=== PATIENT | female | born 1945 | race Caucasian/White ===

== ENCOUNTER 2016-09-20 19:43 | Emergency (ER) | payer MEDICARE, MEDICAID ==
[~2016-09-20] VITALS: Ht 162.6 cm; Wt 115.0 kg
[~2016-09-20 19:43] MED LIST: AMLO5TAB2 PO; HYDR25TA6 PO; INSU100C5 SQ; LEVO200T5 PO; LEVO88TA4 PO; METROPOLOL PO; OMEP-110 PO; SPIR25TA3 PO; VENIAFAXINE PO; [UNRECOGNIZED DRUG - OTHER] PO
[2016-09-20] MEDS ORDERED: DEXAMETHASONE 4 MG/ML, 1ML IVPush ONE (20:30)
[2016-09-20] MEDS ORDERED: FAMOTIDINE 20 MG/2 ML IVPush ONE (20:30)
[2016-09-20] MEDS ORDERED: DEXAMETHASONE 4 MG/ML, 5ML ONE (20:33)
[2016-09-20] MEDS ORDERED: FAMOTIDINE 20 MG/2 ML ONE ×2 (20:33)
[2016-09-20 22:17] VITALS: BP 142/78
== END 2016-09-20 22:19 | disposition home or self-care (01) ==
LOC: ED 21:14
DX: L40.0 Psoriasis vulgaris (principal); T78.3XXA Angioneurotic edema, initial encounter; F17.200 Nicotine dependence, unspecified, uncomplicated; E03.9 Hypothyroidism, unspecified; I10 Essential (primary) hypertension; Z90.49 Acquired absence of other specified parts of digestive tract
CPT/HCPCS: 96374; 96375; 99284; J1100; S0028

== ENCOUNTER → 2016-11-18 | Outpatient (CLI) | payer MEDICARE, MEDICAID | END | disposition home or self-care (01) | LOC: CVU 08:56 | PROVIDERS: ATTEND Internal Medicine Cardiovascular Disease | DX: I65.23 Occlusion and stenosis of bilateral carotid arteries (principal); I35.0 Nonrheumatic aortic (valve) stenosis; I70.8 Atherosclerosis of other arteries; E11.9 Type 2 diabetes mellitus without complications; I10 Essential (primary) hypertension; E78.5 Hyperlipidemia, unspecified; Z87.891 Personal history of nicotine dependence | CPT/HCPCS: 93880; C8929 ==

== ENCOUNTER 2016-12-01 08:07 | Day surgery (SDC) | payer MEDICARE, MEDICAID ==
[2016-11-30 09:23] LABS: ASPARTATE AMINO TRANSFERASE 36 U/L (15-37); BLOOD UREA NITROGEN 23 mg/dL (7-18)
[~2016-12-01] VITALS: Ht 162.6 cm; Wt 119.0 kg
[~2016-12-01 08:07] MED LIST changes: +CYCL-259 PO; +DIAZ10TA4 PO; +INSU100I28 SQ-INSULIN; +INSU200I SQ; +LISI-167 PO; +METO-99 PO; +SENN1TAB PO; +VENL50TA2 PO; +[UNRECOGNIZED DRUG - CODE] TP
[2016-12-01] MEDS ORDERED: LACTATED RINGERS 1,000 ML IV SCH (08:54)
[2016-12-01 08:59] VITALS: BP 153/73
[2016-12-01] MEDS ORDERED: OXYcodone 5 MG/5 ML ORAL.SOL UDC PO PRN (11:00)
[2016-12-01] MEDS ORDERED: HYDROmorphone 1 MG/ML, 1ML IV PRN (11:00)
[2016-12-01] MEDS ORDERED: MIDAZOLAM 1 MG/ML, 2ML IV PRN (11:00)
[2016-12-01] MEDS ORDERED: LABETALOL 5MG/ML, 20ML IV PRN (11:00)
[2016-12-01] MEDS ORDERED: PROMETHAZINE 25 MG/ML, 1ML IV PRN (11:00)
[2016-12-01] MEDS ORDERED: ONDANSETRON 2MG/ML, 2ML IVPush PRN (11:00)
[2016-12-01] MEDS: hydrALAzine 20 MG/ML, 1ML IV PRN ×2 (11:04→11:24)
[2016-12-01] MEDS ORDERED: hydrALAzine 20 MG/ML, 1ML ONE (11:05)
[2016-12-01] MEDS ORDERED: FENTANYL PF 100 MCG/2ML ONE (11:05)
[2016-12-01] MEDS: FENTANYL PF 100 MCG/2ML IV PRN ×2 (11:07→11:18)
[2016-12-01] MEDS ORDERED: PROPOFOL 10 MG/ML, 20ML ONE (15:56)
== END 2016-12-01 13:00 ==
LOC: OUT 08:07
PROVIDERS: ATTEND Internal Medicine Gastroenterology
DX: I85.00 Esophageal varices without bleeding (principal); K74.60 Unspecified cirrhosis of liver; K31.89 Other diseases of stomach and duodenum; E11.9 Type 2 diabetes mellitus without complications; F17.200 Nicotine dependence, unspecified, uncomplicated; I10 Essential (primary) hypertension; E78.5 Hyperlipidemia, unspecified; Z87.39 Personal history of other diseases of the musculoskeletal system and connective tissue
CPT/HCPCS: 36415; 43244; 80053; 82962; 93005; J0360; J2704; J3010

== ENCOUNTER 2016-12-28 08:27 | Day surgery (SDC) | payer MEDICARE, MEDICAID ==
[~2016-12-28] VITALS: Ht 162.6 cm; Wt 118.2 kg
[2016-12-28] MEDS ORDERED: SODIUM CHLORIDE 0.9% 1,000 ML IV SCH (10:18)
[2016-12-28 10:28] VITALS: BP 128/54
[2016-12-28 10:45] LABS: HEMATOCRIT 44.8 % (34.6-47.8); HEMOGLOBIN 15.1 g/dL (11.7-16.4)
[2016-12-28] MEDS ORDERED: LISI5TAB7 PO (10:53)
[2016-12-28] MEDS ORDERED: HYDR-3241 PO (10:53)
[2016-12-28] MEDS ORDERED: METO-95 PO (10:53)
[2016-12-28 10:56] LABS: ASPARTATE AMINO TRANSFERASE 31 U/L (15-37); BLOOD UREA NITROGEN 22 mg/dL (7-18)
[2016-12-28] MEDS ORDERED: PLEASE ENTER HEIGHT AND WEIGHT MC SCH (11:00)
[2016-12-28] MEDS ORDERED: MIDAZOLAM 1 MG/ML, 5ML ONE (11:59)
[2016-12-28] MEDS ORDERED: BIVALIRUDIN 250 MG ONE (12:00)
[2016-12-28] MEDS ORDERED: VERAPAMIL 2.5 MG/ML, 2ML ONE (12:00)
[2016-12-28] MEDS ORDERED: NITROGLYCERIN 5 MG/ML, 10ML ONE (12:00)
[2016-12-28] MEDS ORDERED: HEPARIN 1,000 UNITS/ML, 10ML ONE (12:00)
[2016-12-28] MEDS ORDERED: FENTANYL PF 100 MCG/2ML ONE (12:00)
[2016-12-28] MEDS ORDERED: LIDOCAINE 2%, 20ML ONE (12:00)
[2016-12-28] MEDS ORDERED: TICAGRELOR 90 MG TABLET ONE (12:00)
== END 2016-12-28 16:22 ==
LOC: CACL 08:27
PROVIDERS: ATTEND Internal Medicine Cardiovascular Disease
DX: I25.10 Atherosclerotic heart disease of native coronary artery without angina pectoris (principal); E11.9 Type 2 diabetes mellitus without complications; E78.2 Mixed hyperlipidemia; I10 Essential (primary) hypertension; K74.60 Unspecified cirrhosis of liver; E89.0 Postprocedural hypothyroidism
CPT/HCPCS: 36415; 71020; 80053; 85025; 85610; 85730; 93458; 99156; C1769; C1894; J1644; J2250; J3010; J3490; Q9967; J0583

== ENCOUNTER 2017-04-13 06:31 | Inpatient (IN) | payer MEDICARE, MEDICAID ==
[~2017-04-13] VITALS: Ht 162.6 cm; Wt 119.6 kg
[~2017-04-13 06:31] MED LIST changes: +HYDR-3241 PO; +LISI5TAB7 PO; +METO-95 PO
[2017-04-13] MEDS ORDERED: SODIUM CHLORIDE 0.9% 1,000 ML IV ONE (06:37)
[2017-04-13] MEDS ORDERED: SODIUM CHLORIDE 0.9% 1,000ML IVBOLUS ONE (07:00)
[2017-04-13] MEDS ORDERED: SODIUM CHLORIDE FLUSH 10ML SYR IVF ONE (07:00)
[2017-04-13 07:21] LABS: HEMATOCRIT 46.9 % (34.6-47.8); HEMOGLOBIN 16.1 g/dL (11.7-16.4); WHITE BLOOD COUNT 9.6 x10^3/uL (3.4-10)
[2017-04-13 07:24] LABS: ASPARTATE AMINO TRANSFERASE 40 U/L (15-37); BLOOD UREA NITROGEN 52 mg/dL (7-18)
[2017-04-13 07:27] LABS: ACETAMINOPHEN < 2 mcg/mL (10-30)
[2017-04-13] MEDS ORDERED: SODIUM CHLORIDE FLUSH 10ML SYR IVF PRN (10:00)
[2017-04-13] MEDS ORDERED: POLYETHYLENE GLYCOL 17 GM PACKET PO PRN (11:00)
[2017-04-13] MEDS ORDERED: DEXTROSE 50%, 50ML SYRINGE IVPush PRN (11:00)
[2017-04-13] MEDS ORDERED: ACETAMINOPHEN 325 MG TABLET PO PRN (11:00)
[2017-04-13] MEDS ORDERED: DEXTROSE 4 GM TAB.CHEW PO PRN (11:00)
[2017-04-13] MEDS ORDERED: GLUCAGON 1 MG IM PRN (11:00)
[2017-04-13] MEDS ORDERED: ONDANSETRON 2MG/ML, 2ML IVPush PRN (11:00)
[2017-04-13] MEDS ORDERED: hydrALAzine 20 MG/ML, 1ML IVPush PRN (11:00)
[2017-04-13] MEDS ORDERED: DOCUSATE 100 MG CAPSULE PO PRN (11:00)
[2017-04-13] MEDS ORDERED: BISACODYL 10 MG SUPP PR PRN (11:00)
[2017-04-13] MEDS ORDERED: LORazepam 2 MG/ML, 1ML IVPush PRN (11:30)
[2017-04-13] MEDS: NS + 20MEQ KCL 1,000 ML IV SCH ×2 (12:37→20:59)
[2017-04-13 12:42] VITALS: BP 109/67
[2017-04-13] MEDS: INSULIN ASPART 100 UNITS/ML, PEN SQ-INSULIN SCH ×3 (14:13→21:03)
[2017-04-13] MEDS: HEPARIN 5,000 UNITS/ML, 1ML SQ SCH ×2 (14:13→20:59)
[2017-04-13 20:11] VITALS: BP 115/74
[2017-04-13 20:51] LABS: DAU SCREEN DISCLAIMER
[2017-04-13] MEDS: METOPROLOL SUCCINATE 100 MG TAB.ER.24H PO SCH (20:58)
[2017-04-13] MEDS: SODIUM CHLORIDE FLUSH 10ML SYR IVF SCH (20:59)
[2017-04-13] MEDS: INSULIN DETEMIR 100 UNITS/ML, PEN SQ-INSULIN SCH (21:02)
[2017-04-14 00:41] VITALS: BP 130/73
[2017-04-14 04:04] VITALS: BP 124/70
[2017-04-14] MEDS: NS + 20MEQ KCL 1,000 ML IV SCH (04:09)
[2017-04-14] MEDS: HEPARIN 5,000 UNITS/ML, 1ML SQ SCH ×3 (05:48→23:35)
[2017-04-14 05:55] LABS: HEMATOCRIT 43.1 % (34.6-47.8); HEMOGLOBIN 14.7 g/dL (11.7-16.4); WHITE BLOOD COUNT 6.3 x10^3/uL (3.4-10)
[2017-04-14 06:06] LABS: ASPARTATE AMINO TRANSFERASE 60 U/L (15-37); BLOOD UREA NITROGEN 56 mg/dL (7-18)
[2017-04-14 07:45] VITALS: BP 113/71
[2017-04-14] MEDS: SODIUM CHLORIDE FLUSH 10ML SYR IVF SCH ×2 (08:24→20:53)
[2017-04-14] MEDS: INSULIN ASPART 100 UNITS/ML, PEN SQ-INSULIN SCH ×4 (08:24→20:51)
[2017-04-14] MEDS: METOPROLOL SUCCINATE 100 MG TAB.ER.24H PO SCH ×2 (08:24→20:48)
[2017-04-14] MEDS: LEVOTHYROXINE 200 MCG TABLET PO SCH (08:25)
[2017-04-14] MEDS: AMLODIPINE 5 MG TABLET PO SCH (08:25)
[2017-04-14] MEDS: INSULIN DETEMIR 100 UNITS/ML, PEN SQ-INSULIN SCH ×2 (08:26→20:51)
[2017-04-14] MEDS ORDERED: CYCLOBENZAPRINE 10 MG TABLET PO SCH (09:00)
[2017-04-14] MEDS ORDERED: VENLAFAXINE 75 MG CAP ER PO SCH (09:00)
[2017-04-14 13:52] VITALS: BP 109/70
[2017-04-14] MEDS: SODIUM CHLORIDE 0.9% 1,000 ML IV SCH (18:17)
[2017-04-14 19:13] VITALS: BP 126/76
[2017-04-14 21:34] LABS: POTASSIUM,URINE RANDOM 22 mmol/L
[2017-04-14] MEDS: MINERA CRM, 60GM TP SCH ×2 (21:39→21:40)
[2017-04-15 00:05] VITALS: BP 137/81
[2017-04-15 04:00] VITALS: BP 100/60
[2017-04-15] MEDS: SODIUM CHLORIDE 0.9% 1,000 ML IV SCH ×3 (04:28→20:59)
[2017-04-15 07:08] LABS: ASPARTATE AMINO TRANSFERASE 64 U/L (15-37); BLOOD UREA NITROGEN 32 mg/dL (7-18)
[2017-04-15] MEDS: MINERA CRM, 60GM TP SCH ×3 (09:00→21:00)
[2017-04-15 09:36] VITALS: BP 127/77
[2017-04-15] MEDS: LEVOTHYROXINE 200 MCG TABLET PO SCH (10:46)
[2017-04-15] MEDS: METOPROLOL SUCCINATE 100 MG TAB.ER.24H PO SCH ×2 (10:46→20:59)
[2017-04-15] MEDS: AMLODIPINE 5 MG TABLET PO SCH (10:46)
[2017-04-15] MEDS: HEPARIN 5,000 UNITS/ML, 1ML SQ SCH ×3 (10:46→23:54)
[2017-04-15] MEDS: SODIUM CHLORIDE FLUSH 10ML SYR IVF SCH ×2 (10:47→20:59)
[2017-04-15] MEDS: INSULIN ASPART 100 UNITS/ML, PEN SQ-INSULIN SCH ×4 (10:49→21:00)
[2017-04-15] MEDS: INSULIN DETEMIR 100 UNITS/ML, PEN SQ-INSULIN SCH ×2 (10:50→21:00)
[2017-04-15] MEDS: CEFTRIAXONE PMX 1GM/50ML 50 ML IV SCH (12:57)
[2017-04-15 14:05] VITALS: BP 130/50
[2017-04-15 19:33] VITALS: BP 135/56
[2017-04-16] VITALS: BP 161/77
[2017-04-16 01:14] VITALS: BP 141/59
[2017-04-16] MEDS: SODIUM CHLORIDE 0.9% 1,000 ML IV SCH ×2 (04:30→11:29)
[2017-04-16] MEDS: HYDROcodone/APAP 5/325 TABLET PO PRN (04:51)
[2017-04-16 06:02] LABS: BLOOD UREA NITROGEN 17 mg/dL (7-18)
[2017-04-16] MEDS: INSULIN ASPART 100 UNITS/ML, PEN SQ-INSULIN SCH ×4 (07:00→21:47)
[2017-04-16 08:01] VITALS: BP 119/69
[2017-04-16] MEDS: MINERA CRM, 60GM TP SCH ×4 (09:00→21:48)
[2017-04-16] MEDS: LEVOTHYROXINE 200 MCG TABLET PO SCH (09:14)
[2017-04-16] MEDS: AMLODIPINE 5 MG TABLET PO SCH (09:14)
[2017-04-16] MEDS: HEPARIN 5,000 UNITS/ML, 1ML SQ SCH ×2 (09:14→17:25)
[2017-04-16] MEDS: METOPROLOL SUCCINATE 100 MG TAB.ER.24H PO SCH ×2 (09:14→21:45)
[2017-04-16] MEDS: SODIUM CHLORIDE FLUSH 10ML SYR IVF SCH ×2 (09:15→21:47)
[2017-04-16] MEDS: INSULIN DETEMIR 100 UNITS/ML, PEN SQ-INSULIN SCH ×2 (09:15→21:47)
[2017-04-16] MEDS: CEFTRIAXONE PMX 1GM/50ML 50 ML IV SCH (11:29)
[2017-04-16 13:31] VITALS: BP 141/73
[2017-04-16 18:43] VITALS: BP 137/72
[2017-04-16 21:51] VITALS: BP 150/83
[2017-04-17] MEDS: HYDROcodone/APAP 5/325 TABLET PO PRN (01:10)
[2017-04-17] MEDS: HEPARIN 5,000 UNITS/ML, 1ML SQ SCH ×2 (01:10→08:02)
[2017-04-17 01:16] VITALS: BP 139/82
[2017-04-17 07:47] VITALS: BP_SYST 112; BP_SYST 138; BP_DIAS 60; BP_DIAS 76
[2017-04-17] MEDS: LEVOTHYROXINE 200 MCG TABLET PO SCH (08:02)
[2017-04-17] MEDS: METOPROLOL SUCCINATE 100 MG TAB.ER.24H PO SCH (08:02)
[2017-04-17] MEDS: SODIUM CHLORIDE FLUSH 10ML SYR IVF SCH (08:02)
[2017-04-17] MEDS: AMLODIPINE 5 MG TABLET PO SCH (08:02)
[2017-04-17] MEDS: INSULIN ASPART 100 UNITS/ML, PEN SQ-INSULIN SCH ×2 (08:03→12:43)
[2017-04-17] MEDS: MINERA CRM, 60GM TP SCH (08:03)
[2017-04-17] MEDS: INSULIN DETEMIR 100 UNITS/ML, PEN SQ-INSULIN SCH (08:04)
[2017-04-17 12:24] VITALS: BP 144/81
[2017-04-17] MEDS: CEFTRIAXONE PMX 1GM/50ML 50 ML IV SCH (13:18)
== END 2017-04-17 16:20 | disposition home health service (06) | DRG 91 ==
LOC: ED 07:33 → EDIP 09:41 → 4EST 11:45
PROVIDERS: ADMIT Internal Medicine; ATTEND Internal Medicine
DX: G92 Toxic encephalopathy (principal); J96.00 Acute respiratory failure, unspecified whether with hypoxia or hypercapnia; N17.0 Acute kidney failure with tubular necrosis; E87.2 Acidosis; E87.1 Hypo-osmolality and hyponatremia; N39.0 Urinary tract infection, site not specified; F17.200 Nicotine dependence, unspecified, uncomplicated; K21.9 Gastro-esophageal reflux disease without esophagitis; E03.9 Hypothyroidism, unspecified; E11.65 Type 2 diabetes mellitus with hyperglycemia; E83.52 Hypercalcemia; F32.9 Major depressive disorder, single episode, unspecified; G89.29 Other chronic pain; I11.0 Hypertensive heart disease with heart failure; I50.9 Heart failure, unspecified; J44.9 Chronic obstructive pulmonary disease, unspecified; R62.7 Adult failure to thrive; Z79.4 Long term (current) use of insulin; Z82.49 Family history of ischemic heart disease and other diseases of the circulatory system; B96.89 Other specified bacterial agents as the cause of diseases classified elsewhere; E86.0 Dehydration; Z83.3 Family history of diabetes mellitus; Z95.2 Presence of prosthetic heart valve; Z85.828 Personal history of other malignant neoplasm of skin
CPT/HCPCS: 36415; 70450; 70551; 71010; 76700; 80048; 80053; 80307; 80329; 81001; 82040; 82140; 82436; 82550; 82607; 82746; 82962; 83605; 83930; 83935; 84133; 84300; 84443; 85025; 85610; 85730; 87040; 87077; 87086; 87186; 93005; 96360; 96361; J0696; J1644; J1815; J3480; G0479; G0480; J7030